=== PATIENT | female | born 1955 | race Caucasian/White ===

== ENCOUNTER 2023-04-06 00:05 | Day surgery (SDC) | payer MEDICARE, SELFPAY ==
[2023-03-28 10:41] VITALS: BMI 25.8
--- NOTE | 2023-04-05 19:07 | PM.HPGS ---
History of Present Illness History of Present Illness Consent: Risks, benefits, and alternatives have been discussed and questions answered. Patient agrees to proceed with procedure. Chief complaint: neoplasm screening Narrative: Deanna Vizcaino is a 67 year old female Referred for colon cancer screening. her father had colon cancer and she had a polyp removed at the time of her last colonoscopy about 6 years ago. Review of Systems Review of Systems: All systems reviewed & are unremarkable except as noted in HPI and below PMFSH Past Medical History Medical History Hyperlipidemia Hypothyroidism Social History Social History Smoking status: Former smoker Tobacco type: cigarettes Substance use type: does not use Living arrangements: with family Spiritual care concerns: No Meds Home Medications and Allergies Home Medications Medication Instructions Recorded Confirmed Type levothyroxine 75 mcg tablet 75 mcg PO DAILY 03/28/23 04/06/23 History Allergies Allergy/AdvReac Type Severity Reaction Status Date / Time salmon oil Allergy Hives Verified 04/06/23 09:00 Sulfa (Sulfonamide Allergy Hives Verified 04/06/23 09:00 Antibiotics) Exam Const: General: alert Orientation/consciousness: patient oriented x3 Resp: Auscultation: clear to auscultation bilaterally Cardio: Rhythm: regular rhythm GI: GI Palp: Yes Soft to palpation and No Tenderness to palpation present (GI) Neuro: General: patient oriented x3 Assessment and Plan Assessment and plan (1) Colon cancer screening: Code(s): Z12.11 - Encounter for screening for malignant neoplasm of colon Status: Acute Assessment and Plan: Colonoscopy with possible biopsy or polypectomy or cautery or injection of substances.
--- NOTE | 2023-04-06 08:05 | P.PNAN_ITS ---
Anes - Initial Pre Proc Eval Procedure: Operation Date: 04/06/23 10:00 Proposed Procedures p Screening Colonoscopy - Elliot Rodriguez MD Date/Time: 04/06/23 08:05 Surgeon: Elliot Rodriguez MD Pre Op Diagnosis: neoplasm screening Patient Data Age: 67 Gender: F Height: 1.65 m Weight: 70.5 kg Allergies Allergy/AdvReac Type Severity Reaction Status Date / Time salmon oil Allergy Hives Verified 04/06/23 09:00 Sulfa (Sulfonamide Allergy Hives Verified 04/06/23 09:00 Antibiotics) Home Medications Medication Instructions Recorded Confirmed Type levothyroxine 75 mcg tablet 75 mcg PO DAILY 03/28/23 04/06/23 History Patient hx anesthesia problems: none Family hx anesthesia problems: none Results Review: All pre-operative results and documents have been reviewed as part of the pre- operative evaluation. [facility] Past Medical History Medical History Hyperlipidemia Hypothyroidism Social History Social History Smoking status: Former smoker Tobacco type: cigarettes Substance use type: does not use Living arrangements: with family Spiritual care concerns: No Anes - Eval Final PreProcedure Day of Procedure 04/06/23 08:05 Patient weight: normal Heart: regular rate and rhythm Lungs: clear to auscultation and normal air movement Airway: Mallampati scale class II Neurological: alert and oriented Last oral intake: >/= 8 hours ASA classification: II Emergent: no Anesthetic plan: proceed Anesthesia type and monitoring: general GIVS Results Review: All pre-operative results and documents have been reviewed as part of the pre- operative evaluation. Informed Consent: The patient's anesthetic plan and its attendant risks and benefits were discussed with the patient/family/POA. Questions were solicited and answers provided to the satisfaction of the patient/family/POA.
[2023-04-06 08:54] VITALS: BP 110/66; PULSE 73; RESP 16; TEMP 36.8; O2SAT 100; BMI 26.4
[2023-04-06] MEDS: LACTATED RINGERS 1,000 ML 150 ML IV CONT (09:14)
[2023-04-06 10:15] VITALS: BP 104/68; PULSE 70; RESP 18; O2SAT 95
[2023-04-06 10:25] VITALS: BP 101/64; PULSE 71; RESP 23; O2SAT 100
[2023-04-06 10:35] VITALS: BP 109/76; PULSE 65; RESP 29; O2SAT 97
== END 2023-04-06 10:44 | disposition home or self-care (01) ==
PROVIDERS: PCP Physician Assistant; Visit Provider Internal Medicine Gastroenterology
PROC: 0DJD8ZZ Inspection of Lower Intestinal Tract, Via Natural or Artificial Opening Endoscopic (ICD-10-PCS; CPT 45378; principal; 2023-04-06 10:00)
DX: Z12.11 Encounter for screening for malignant neoplasm of colon (principal); K64.8 Other hemorrhoids; Z86.010 Personal history of colon polyps; Z80.0 Family history of malignant neoplasm of digestive organs; E03.9 Hypothyroidism, unspecified; Z87.891 Personal history of nicotine dependence
CPT/HCPCS: G0105; J2704; J7120